=== PATIENT | male | born 1985 | race Caucasian/White ===

== ENCOUNTER 2023-04-12 13:39 | Outpatient (REF) | payer OTHER, SELFPAY ==
[2023-04-12 14:42] LABS: ALT 47 U/L (16-63); AST 29 U/L (15-37); Alkaline Phosphatase 73 U/L (46-116); BUN 15 mg/dL (7-18); Bilirubin, Total 0.5 mg/dL (0.2-1.0); CREATININE 0.8 mg/dL (0.70-1.30); Calculated LDL 127 mg/dL (<100); Chloride 104 mmol/L (98-107); Cholesterol 180 mg/dL (<200); Estimated GFR 115.45 (mL/min/1.73m2); Glucose 90 mg/dL (74-106); HDL Cholesterol 37 mg/dL (40-60); Potassium 4.3 mmol/L (3.5-5.1); Sodium 140 mmol/L (136-145); Total Protein 7.3 g/dL (6.4-8.2); Triglyceride 82 mg/dL (<150)
[2023-04-13 09:26] LABS: Hepatitis C Ab w Rflx HCV PCR Negative (Negative)
[2023-04-13 09:38] LABS: HIV-1/2 Ag & Ab Screen Negative (Negative)
== END 2023-04-12 13:40 | disposition home or self-care (01) ==
LOC: LBN 13:39
PROVIDERS: PCP Nurse Practitioner Family; Visit Provider Nurse Practitioner Family
DX: Z13.220 Encounter for screening for lipoid disorders (principal); Z11.4 Encounter for screening for human immunodeficiency virus [HIV]; Z11.59 Encounter for screening for other viral diseases; F41.8 Other specified anxiety disorders
CPT/HCPCS: 80053; 80061; 86803; 87389

== ENCOUNTER 2024-04-29 02:57 | Outpatient (CLI) | payer OTHER, SELFPAY ==
[2024-04-29 09:07] LABS: HCT 47.7 % (40.0-50.0); MCH 28.6 pg (27.0-33.0); MCHC 33.5 % (32.0-36.0); MCV 85 fL (80-95); MPV 9.5 fL (8.0-11.0); Platelet Count 222 10^3/uL (130-400); RBC 5.59 10^6/uL (4.36-5.78); RDW 12.9 % (11.8-14.1); RDW-SD 39.5 fL; WBC 6.29 10^3/uL (4.4-10.8)
[2024-04-29 09:32] LABS: TSH (W/Ref FT4) 1.72 uIU/mL (0.36-3.74)
== END 2024-04-29 02:58 | disposition home or self-care (01) ==
LOC: LBO 02:57
PROVIDERS: PCP Nurse Practitioner Family; Visit Provider Nurse Practitioner Family
DX: R53.81 Other malaise (principal)
CPT/HCPCS: 36415; 85027; 84443

== ENCOUNTER 2024-05-27 01:54 | Outpatient (CLI) | payer OTHER, SELFPAY ==
[2024-06-01 09:26] LABS: Testosterone, Free 7.08 ng/dL (4.46-17.1); Testosterone, Total 225 ng/dL (240-950)
== END 2024-05-27 01:55 | disposition home or self-care (01) ==
LOC: LOS 01:55
PROVIDERS: PCP Nurse Practitioner Family; Visit Provider Nurse Practitioner Family
DX: R53.81 Other malaise (principal)
CPT/HCPCS: 36415; 84402; 84403

== ENCOUNTER 2024-06-26 02:51 | Outpatient (CLI) | payer OTHER, SELFPAY ==
[2024-07-09 09:56] LABS: Testosterone, Free 11.1 ng/dL (4.46-17.1); Testosterone, Total 356 ng/dL (240-950)
== END 2024-06-26 02:52 | disposition home or self-care (01) ==
PROVIDERS: PCP Nurse Practitioner Family; Visit Provider Nurse Practitioner Family
DX: R53.81 Other malaise (principal)
CPT/HCPCS: 36415; 84402; 84403